=== PATIENT | male | born 1965 | race Caucasian/White ===

== ENCOUNTER 2020-06-23 00:10 | Outpatient (CLI) | payer OTHER, SELFPAY ==
[2020-06-23 19:58] LABS: SARS-CoV-2 RNA PCR Negative
== END 2020-06-23 00:11 | disposition home or self-care (01) ==
LOC: ANHCOVIDDT 00:10
PROVIDERS: Visit Provider Internal Medicine Gastroenterology
DX: Z01.812 Encounter for preprocedural laboratory examination (principal); Z20.828 Contact with and (suspected) exposure to other viral communicable diseases
CPT/HCPCS: 87635; C9803; U0003

== ENCOUNTER 2020-06-25 02:05 | Day surgery (SDC) | payer OTHER, SELFPAY ==
[2020-06-19 11:09] VITALS: BMI 27.3
[2020-06-25 06:26] VITALS: BP 143/90; PULSE 102; RESP 18; TEMP 36.7; O2SAT 95; BMI 27.8
[2020-06-25] MEDS: LACTATED RINGERS 1,000 ML 150 ML IV CONT (06:42)
--- NOTE | 2020-06-25 07:01 | WPDANESEPPF ---
Anes - Initial Pre Proc Eval Procedure: Operation Date: 06/25/20 07:30 Proposed Procedures p Screening Colonoscopy - Giorgio Guillaume MD Date/Time: 06/25/20 07:01 Surgeon: Giorgio Guillaume MD Pre Op Diagnosis: neoplasm screening Patient Data Age: 55 Gender: M Height: 5 ft 9 in Weight: 85.6 kg Last Vital Signs Temp 36.7 C 06/25/20 06:26 Pulse 102 H 06/25/20 06:26 Resp 18 06/25/20 06:26 BP 143/90 H 06/25/20 06:26 Pulse Ox 95 06/25/20 06:26 Allergies Allergy/AdvReac Type Severity Reaction Status Date / Time Sulfa (Sulfonamide Allergy Mild Rash Verified 06/25/20 06:25 Antibiotics) Home Medications Medication Instructions Recorded Confirmed Type aspirin 81 mg tablet,delayed 81 mg PO DAILY 02/13/20 06/19/20 History release atorvastatin 80 mg tablet 80 mg PO DAILY 02/13/20 06/19/20 History metoprolol succinate 50 mg 50 mg PO DAILY 02/13/20 06/19/20 History tablet,extended release 24 hr niacin 1,000 mg tablet,extended 2,000 mg PO . Daily tablet 02/13/20 06/19/20 History release 24 hr ramipril 5 mg capsule 5 mg PO DAILY 02/13/20 06/19/20 History peg 3350-electrolytes 236 240 ml PO Q10M #4000 ml 04/24/20 Rx gram-22.74 gram-6.74 gram-5.86 gram solution Patient hx anesthesia problems: none Family hx anesthesia problems: none PMFSH Past Medical History Medical History Colon cancer screening Essential (primary) hypertension Male erectile dysfunction, unspecified Mixed hyperlipidemia Personal history of prostate cancer Tick bite of back Surgical History Surgical History History of prostatectomy (~2010) Hx of tonsillectomy (~1969) Family History Family History Mother Breast cancer Father Acute myocardial infarction Sibling Skin cancer Social History Social History Smoking status: Never smoker Alcohol intake: current Drinks per week: 0 Alcohol use details: 1 PER MONTH Substance use: never Substance use type: does not use Living arrangements: with family Spiritual care concerns: No Anes - Eval Final PreProcedure Day of Procedure 06/25/20 07:01 Patient weight: overweight Heart: regular rate and rhythm Lungs: clear to auscultation Airway: Mallampati scale class II Neurological: alert and oriented Last oral intake: >/= 8 hours ASA classification: III Emergent: no Anesthetic plan: proceed Anesthesia type and monitoring: general GIVS and standard monitoring Informed Consent: The patient's anesthetic plan and its attendant risks and benefits were discussed with the patient/family/POA. Questions were solicited and answers provided to the satisfaction of the patient/family/POA.
--- NOTE | 2020-06-25 07:36 | PM.HPGS ---
History of Present Illness History of Present Illness Consent: Risks, benefits, and alternatives have been discussed and questions answered. Patient agrees to proceed with procedure. Chief complaint: neoplasm screening Narrative: Han Owusu is a 55 year old male here for screening colonoscopy, last one about 10 years ago Review of Systems Constitutional: Constitutional: Denies headache(s) and Denies weakness Eyes: Eyes: Denies blurry vision ENT: Reports Normal hearing present, Denies headache(s) and Denies neck pain Cardiovascular: Cardiovascular: Denies chest pain and Denies dyspnea Respiratory: Respiratory: Denies dyspnea Gastrointestinal: Gastrointestinal: Reports no additional gastrointestinal complaints Genitourinary: Genitourinary: Denies dysuria Musculoskeletal: Musculoskeletal: Denies neck pain Integumentary/Breasts: Skin/Breast: Denies dry skin Neurologic: Reports Normal hearing present, Denies headache(s) and Denies weakness Psychiatric: Psychiatric: Denies anxiety Endocrine: Endocrine: Denies change in body appearance Hematologic/Lymphatic: Hematologic/Lymphatic: Denies easy bleeding Allergic/Immunologic: Allergic/Immunologic: Denies urticaria PMFSH Past Medical History Medical History Colon cancer screening Essential (primary) hypertension Male erectile dysfunction, unspecified Mixed hyperlipidemia Personal history of prostate cancer Tick bite of back Surgical History Surgical History History of prostatectomy (~2010) Hx of tonsillectomy (~1969) Family History Family History Mother Breast cancer Father Acute myocardial infarction Sibling Skin cancer Social History Social History Smoking status: Never smoker Alcohol intake: current Drinks per week: 0 Alcohol use details: 1 PER MONTH Substance use: never Substance use type: does not use Living arrangements: with family Spiritual care concerns: No Meds Home Medications and Allergies Home Medications Medication Instructions Recorded Confirmed Type aspirin 81 mg tablet,delayed 81 mg PO DAILY 02/13/20 06/19/20 History release atorvastatin 80 mg tablet 80 mg PO DAILY 02/13/20 06/19/20 History metoprolol succinate 50 mg 50 mg PO DAILY 02/13/20 06/19/20 History tablet,extended release 24 hr niacin 1,000 mg tablet,extended 2,000 mg PO . Daily tablet 02/13/20 06/19/20 History release 24 hr ramipril 5 mg capsule 5 mg PO DAILY 02/13/20 06/19/20 History peg 3350-electrolytes 236 240 ml PO Q10M #4000 ml 04/24/20 Rx gram-22.74 gram-6.74 gram-5.86 gram solution Allergies Allergy/AdvReac Type Severity Reaction Status Date / Time Sulfa (Sulfonamide Allergy Mild Rash Verified 06/25/20 06:25 Antibiotics) Vital Signs Vital Signs - 24 hr 06/25/20 06:26 Temperature 98.1 F Pulse Rate 102 H Respiratory Rate 18 Blood Pressure 143/90 H Pulse Oximetry 95 Exam Const: General: comfortable and no acute distress HENMT: General nose exam: Normal nares present Eyes: General: appearance normal, both eyes and all related structures Neck: Neck: no JVD Resp: Auscultation: clear to auscultation bilaterally Cardio: Rate: regular rate Rhythm: regular rhythm GI: Inspection: non-distended GI Palp: Yes Soft to palpation Skin: General skin exam: normal color Neuro: General: gait normal Speech: normal speech Extrem: General: normal to inspection Psych: Mental Status: mental status grossly normal Assessment and Plan Assessment and plan (1) Colon cancer screening: Code(s): Z12.11 - Encounter for screening for malignant neoplasm of colon Status: Acute Assessment and Plan: will proceed with colonoscopy (2) Personal hi
[2020-06-25 07:53] VITALS: BP 96/56; PULSE 80; RESP 16; O2SAT 97
[2020-06-25 08:03] VITALS: BP 100/58; PULSE 91; RESP 14; O2SAT 99
[2020-06-25 08:13] VITALS: BP 121/79; PULSE 82; RESP 14; O2SAT 98
== END 2020-06-25 08:21 | disposition home or self-care (01) ==
PROVIDERS: PCP Family Medicine; Visit Provider Internal Medicine Gastroenterology
PROC: 0DJD8ZZ Inspection of Lower Intestinal Tract, Via Natural or Artificial Opening Endoscopic (ICD-10-PCS; CPT 45378; principal; 2020-06-25 07:30)
DX: Z12.11 Encounter for screening for malignant neoplasm of colon (principal); K64.8 Other hemorrhoids; I10 Essential (primary) hypertension; E78.2 Mixed hyperlipidemia; Z85.46 Personal history of malignant neoplasm of prostate; Z79.82 Long term (current) use of aspirin
CPT/HCPCS: 45378; J2704; J7120

== ENCOUNTER 2023-08-05 14:46 | Outpatient (CLI) | payer OTHER, SELFPAY ==
--- NOTE | ~2023-08-05 | CT_ITS ---
EXAMINATION: CT diagnostic chest w con DATE: 08/05/2023 15:17 INDICATION: Anterior mediastinal mass. TECHNIQUE: Computed tomography (CT) of the chest was performed with 75 cc Omnipaque 350 intravenous c ontrast. The dose-length product was 310.33 mGy-cm. Automated exposure control and iterative reconstr uction technique were employed. COMPARISON: None FINDINGS: Heart size normal. There is an anterior mediastinal (measuring 10 mm short axis. No hilar l ymphadenopathy. No significant pleural or pericardial effusion. Heart size normal. No endobronchial l esions. No focal airspace consolidation. No suspicious pulmonary nodules or masses. Moderate thoracic spondylosis. There is an intermediate density 1.8 cm mass upper pole of the left kidney. There is a complicated ri ght renal cyst with internal septation and calcifications of the septation. IMPRESSION: 1. Borderline sized anterior mediastinal lymph node measuring 10 mm, nonspecific. 2: Intermediate density 1.8 cm left renal mass measuring 33 Hounsfield units. Consider correlation w ith ultrasound. Reviewed, dictated and finalized at location A. SIT MANAGER IMPRESSION: 1. Borderline sized anterior mediastinal lymph node measuring 10 mm, nonspecifi c. 2: Intermediate density 1.8 cm left renal mass measuring 33 Hounsfield units. Consider correlation with ultrasound.
[2023-08-05 15:07] LABS: Estimated Glomerular Filt Rate > 60
== END 2023-08-05 14:47 ==
PROVIDERS: PCP Family Medicine; Visit Provider Family Medicine
DX: J98.59 Other diseases of mediastinum, not elsewhere classified (principal); R91.8 Other nonspecific abnormal finding of lung field
CPT/HCPCS: 71260; Q9967

== ENCOUNTER → 2023-08-26 12:47 | Outpatient (CLI) | payer OTHER, SELFPAY ==
--- NOTE | ~2023-08-26 | CT_ITS ---
EXAMINATION: CTA abdomen DATE: 08/26/2023 13:33 INDICATION: Left kidney mass. TECHNIQUE: Computed tomographic angiography (CTA) of the abdomen was performed without and with 100 m L Omnipaque-350 intravenous contrast. Automated exposure control and iterative reconstruction [employer] were employed. The dose-length product was 754.75 mGy-cm. Maximum intensity projection 3D-reconstr uctions of the aorta and other arteries were constructed by the technologist on a separate workstatio n. COMPARISON: Chest CT 08/05/2023 FINDINGS: The visualized portions of the lung bases demonstrate minimal atelectasis. No pleural effus ion. The heart size is normal. No pericardial effusion. There are cysts in the liver measuring up to 6 mm. The gallbladder, spleen, pancreas, and adrenal glands are normal. There are cysts in the kidney s measuring up to 5.3 cm on the right. There is a 1.6 cm hemorrhagic cyst in left kidney. There are n o dilated loops of bowel. The appendix is normal. Aortic atherosclerosis is noted. There is no signif icant stenosis of celiac axis, superior mesenteric artery, the renal arteries, or inferior mesenteric artery. There are no pathologically enlarged lymph nodes. There is no free intraperitoneal fluid. Th ere is a supraumbilical ventral hernia containing fat. There is mild thoracic and lumbar spondylosis. There is mild chronic anterior wedging of T11-L1 vertebral bodies. IMPRESSION: 1. Benign cysts in the kidneys. Reviewed, dictated and finalized at location E. CLUB ATTENDANT
[2023-08-26 13:16] LABS: Estimated Glomerular Filt Rate > 60
== END ==
PROVIDERS: PCP Family Medicine
DX: N28.1 Cyst of kidney, acquired (principal)
CPT/HCPCS: 74175; Q9967